=== PATIENT | female | born 1995 | race African-American/Black ===

== ENCOUNTER 2024-05-28 17:06 | Outpatient (CLI) | payer BC, SELFPAY ==
[2024-05-28 23:09] LABS: Chlamydia DNA Amplified* NOT DETECTED (No Detected); GC DNA Amplified* NOT DETECTED (No Detected)
== END 2024-05-28 17:07 | disposition home or self-care (01) ==
LOC: LKVREF 17:06
PROVIDERS: Visit Provider Physician Assistant
DX: N89.8 Other specified noninflammatory disorders of vagina (principal); R30.0 Dysuria; Z11.3 Encounter for screening for infections with a predominantly sexual mode of transmission
CPT/HCPCS: 87086; 87491; 87591